=== PATIENT | male | born 1985 | race Caucasian/White ===

== ENCOUNTER 2022-03-06 18:54 | Emergency (ER) | payer OTHER ==
[~2022-03-06] VITALS: Ht 170.2 cm; Wt 84.0 kg
[2022-03-06 18:57] VITALS: BP 132/66
--- NOTE | 2022-03-06 19:06 | NUR ---
PATIENT AMBULATED TO BED 11.
--- NOTE | 2022-03-06 19:12 | NUR ---
Patient being evaluated by DR BALLESTEROS at bedside.
--- NOTE | 2022-03-06 19:25 | NUR ---
XRAY AT BEDSIDE
--- NOTE | 2022-03-06 19:55 | NUR ---
36 y/o male bibs, c/o injury to 5th digit of left hand. pt states he was lifting tile at work when he crushed his hand between the tile and the truck. pt denies pain due to nerve damage from previous injury, but has redness ans swelling and inability to extend digit. pt has unlabored breathing, a/ox4, gcs-15, ambulatory. pt denies fever, cp, sob, or cough. pmh: none nka denies meds
[2022-03-06] MEDS ORDERED: IBUP-2213 PO (20:11)
--- NOTE | 2022-03-06 20:15 | NUR ---
SPLINT APPLIED TO DIGIT AND RE-EXAMINED BY MARCUS MARTINEZ. DISCUSSING RESULTS WITH PT.
[2022-03-06 20:25] VITALS: BP 132/66
== END 2022-03-06 20:25 | disposition home or self-care (01) ==
LOC: MED 18:54
DX: S62.637A Displaced fracture of distal phalanx of left little finger, initial encounter for closed fracture (principal); Z98.890 Other specified postprocedural states; W22.8XXA Striking against or struck by other objects, initial encounter; Y93.89 Activity, other specified; Y92.89 Other specified places as the place of occurrence of the external cause; Y99.8 Other external cause status
CPT/HCPCS: 73140; 99283

== ENCOUNTER 2022-04-14 18:19 | Emergency (ER) | payer OTHER ==
[~2022-04-14] VITALS: Ht 170.2 cm; Wt 85.7 kg
[~2022-04-14 18:19] MED LIST: IBUP-2213 PO
[2022-04-14 18:27] VITALS: BP 135/87
--- NOTE | 2022-04-14 19:30 | NUR ---
Patient signed consent for Tdap and seen by ANNIE CORONEL as previouse day shift/
[2022-04-14 19:34] VITALS: BP 126/88
--- NOTE | 2022-04-14 19:34 | NUR ---
Patient discharged with v/s stable. Written and verbal after care instructions given and explained. Patient verbalized understanding. Ambulatory with steady gait. All questions addressed prior to discharge. Advised to follow up with PMD.
== END 2022-04-14 19:34 | disposition home or self-care (01) ==
LOC: MED 18:19
DX: S51.831A Puncture wound without foreign body of right forearm, initial encounter (principal); Z79.1 Long term (current) use of non-steroidal anti-inflammatories (NSAID); W45.0XXA Nail entering through skin, initial encounter; Y92.89 Other specified places as the place of occurrence of the external cause; Y93.89 Activity, other specified; Y99.8 Other external cause status
CPT/HCPCS: 73090; 90471; 90715; 99283

== ENCOUNTER 2024-04-04 03:20 | Emergency (ER) | payer OTHER ==
[~2024-04-04] VITALS: Ht 165.1 cm; Wt 72.6 kg
[2024-04-04 03:23] VITALS: BP 140/89; PULSE 57; RESP 16; TEMP 97.4; O2SAT 98
[2024-04-04] MEDS: MECLIZINE 25 MG TAB PO ONE (03:54)
[2024-04-04] MEDS ORDERED: MECL-303 PO (04:03)
[2024-04-04 04:06] VITALS: BP 140/89; PULSE 57; RESP 16; TEMP 97.4; O2SAT 98
== END 2024-04-04 04:08 | disposition home or self-care (01) ==
LOC: MED 03:20
DX: R42 Dizziness and giddiness (principal); F41.9 Anxiety disorder, unspecified; R20.2 Paresthesia of skin; J02.9 Acute pharyngitis, unspecified; Z79.1 Long term (current) use of non-steroidal anti-inflammatories (NSAID); Z79.899 Other long term (current) drug therapy
CPT/HCPCS: 99282; J8597